=== PATIENT | male | born 1975 | race American Indian/Alaskan Native ===

== ENCOUNTER 2017-06-29 16:46 | Emergency (ER) | payer MEDICAID, OTHER ==
[2017-06-29 16:52] VITALS: BP 143/95; PULSE 105; RESP 20; TEMP 98.7; O2SAT 97
--- NOTE | 2017-06-29 17:11 | C.PDOC ---
History Of Present Illness 42M c/o productive cough, congestion, fever, chills for 1.5 weeks. he measured a temp of 100 last night. has not taken any meds. smokes. denies any pmh. he also c/o pain in his right buttock that radiates down his leg past the knee "on and off for 2 months." no numbness, weakness, urinary problems, saddle anesthesia, IVDA. Time Seen by Provider: 06/29/17 17:11 Chief Complaint (Nursing): Back Pain Past Medical History Vital Signs: Last Vital Signs Temp 98.7 F 06/29/17 16:51 Pulse 105 H 06/29/17 16:51 Resp 20 06/29/17 16:51 BP 143/95 H 06/29/17 16:51 Pulse Ox 97 06/29/17 17:11 Family History: States: Other Other Family History: nc - Social History Hx Alcohol Use: No Hx Substance Use: No - Immunization History Hx Tetanus Toxoid Vaccination: Yes Hx Influenza Vaccination: Yes Hx Pneumococcal Vaccination: No Review Of Systems Constitutional: Positive for: Fever, Chills, Malaise Cardiovascular: Negative for: Chest Pain Respiratory: Positive for: Cough. Negative for: Shortness of Breath, Hemoptysis Gastrointestinal: Negative for: Nausea, Vomiting, Abdominal Pain, Diarrhea Musculoskeletal: Positive for: Back Pain Skin: Negative for: Rash Neurological: Negative for: Weakness, Numbness Physical Exam - Physical Exam Appears: Well, Non-toxic, No Acute Distress Skin: Warm, Dry Eye(s): bilateral: PERRL Oral Mucosa: Moist Neck: Supple Cardiovascular: Rhythm Regular Respiratory: No Decreased Breath Sounds, No Accessory Muscle Use, No Rales, No Rhonchi, No Stridor, No Wheezing Back: Straight Leg Raising (+right) Extremity: No Swelling Pulses: Left Dorsalis Pedis: Normal Neurological/Psych: Oriented x3, Normal Motor, Normal Sensation, Other ( reflexes symmetric, neg babinski, no clonus, nl strength in b/l hip/knee/ankle flex/ext and EHL.) ED Course And Treatment O2 Sat by Pulse Oximetry: 97 Disposition - Disposition Disposition: HOME/ ROUTINE Disposition Time: 17:30 Condition: STABLE Forms: [employer] (Guyanese) - Clinical Impression Clinical Impression: Respiratory infection, Sciatica
== END 2017-06-29 17:46 | disposition home or self-care (01) ==
LOC: C.ER 16:46
DX: J98.8 Other specified respiratory disorders (principal); F17.210 Nicotine dependence, cigarettes, uncomplicated; M54.30 Sciatica, unspecified side